=== PATIENT | male | born 1990 | race Caucasian/White ===

== ENCOUNTER 2016-11-25 17:05 | Emergency (ER) | payer SELFPAY ==
[~2016-11-25] VITALS: Ht 185.4 cm; Wt 122.7 kg
[2016-11-25 17:15] VITALS: TEMP 36.6; O2SAT 92; Ht 185.4 cm; Wt 122.7 kg
--- NOTE | 2016-11-25 17:50 | EMERGENCY ROOM VISIT NOTE ---
History Report prepared by Ranjith: Nelida Bartholomew Under the Supervision of: Dr. Titi Joshi M.D. First contact with patient: 17:08 Stated Complaint: ALCOHOL OVERDOSE History of Present Illness The patient is a 26 year old male who presents to the Emergency Room with complaints of an episode of alcohol intoxication occurring prior to arrival. Per EMS, the patient was at the medic station and was vomiting. They report that they gave 8 mg of Zofran. They state they called the ambulance because they thought he was too drunk. The patient denies being diabetic, having a cardiac history, and any falls. History limited secondary to alcohol intoxication. Source of History: patient, EMS History Limited By: intoxication Onset: prior to arrival Position: other (global) Quality: other (global) Timing: other (episode) Associated Symptoms: + vomiting Note: The patient denies falling. Review of Systems ROS unattainable secondary to alcohol intoxication. Past Medical & Surgical Medical Problems: (1) No Known Active Medical Problems Family History No pertinent family history Social History Alcohol Use: occasionally Marital Status: single Current/Historical Medications Unable to Obtain Active Prescriptions or Reported Meds Physical Exam Vital Signs Date Time Temp Pulse Resp B/P (MAP) Pulse Ox O2 Delivery O2 Flow Rate FiO2 11/25/16 22:49 125/59 11/25/16 22:35 84 93 11/25/16 22:14 112/60 11/25/16 22:09 112/60 11/25/16 22:05 89 95 11/25/16 21:35 90 100 11/25/16 21:05 90 96 11/25/16 20:35 83 2 100 11/25/16 20:30 115/76 11/25/16 20:05 89 14 96 11/25/16 20:00 116/47 11/25/16 19:35 75 15 97 11/25/16 19:31 115/67 11/25/16 19:19 73 14 114/70 97 Room Air 11/25/16 19:05 76 9 96 11/25/16 19:00 114/70 11/25/16 18:35 82 16 95 11/25/16 18:30 122/63 11/25/16 18:05 85 17 94 11/25/16 18:02 84 18 116/69 94 Nasal Cannula 2.0 11/25/16 18:00 116/69 11/25/16 17:35 80 16 93 11/25/16 17:30 112/56 11/25/16 17:27 74 11/25/16 17:16 134/65 11/25/16 17:15 92 Room Air 11/25/16 17:15 36.6 78 18 134/65 92 Room Air Physical Exam GENERAL: Patient is in no acute distress. Smells of alcohol. HEENT: No acute trauma, normocephalic atraumatic, mucous membranes moist, no nasal congestion, no scleral icterus. Pupils equal and reactive to light. No obvious head trauma. NECK: No stridor, no adenopathy, no meningismus, trachea is midline. LUNGS: Clear to auscultation bilaterally, no wheeze, no rhonchi, breath sounds equal. HEART: Without murmurs gallops or rubs, regular rate and rhythm. ABDOMEN: Soft, nontender, bowel sounds positive, no hernias, no peritonitis. EXTREMITIES: No cyanosis or edema, full range of motion of all the joints without pain or difficulty, no signs for acute trauma. NEUROLOGIC: Moderately intoxicated with alcohol, no acute motor or sensory deficits, no focal weakness. SKIN: No rash, no jaundice, no diaphoresis. Medical Decision & Procedures Laboratory Results 11/25/16 17:37 Test 11/25/16 17:37 Anion Gap 9.0 mmol/L (3-11) Est Creatinine Clear Calc Drug Dose 164.0 ml/min Estimated GFR () 130.7 Estimated GFR (Non- 112.8 BUN/Creatinine Ratio 15.1 (10-20) Calcium Level 8.2 mg/dl (8.5-10.1) Ethyl Alcohol mg/dL 233.0 mg/dl (0-3) Laboratory results reviewed by me. ED Course 1709: The patient was evaluated in room B3. A complete history and physical exam was performed. 2304: Reevaluated the patient. Discussed results and discharge instructions: he verbalized understanding and agreement. The patient is ready for discharge. Medical Decision Differential diagnoses include head trauma, alcohol or drug abuse, dehydration, vomiting, alcohol overdose, aspiration. The patient presents with an alcohol overdose. No trauma reported. No vomiting. Alcohol level is around 230, consistent with his history. No significant electrolyte abnormality or kidney failure. The patient was watched in the emergency room on the cardiac and pulse ox monitor. His alcohol was allowed to clear with time. Now that he is more awake and alert, he can be discharged. His history is consistent with an alcohol overdose. Impression Primary Impression: Alcohol overdose Additional Impression: Vomiting Scribe Attestation The scribe's documentation has been prepared under my direction and personally reviewed by me in its entirety. I confirm that the note above accurately reflects all work, treatment, procedures, and medical decision making performed by me. Departure Information Dispostion Home / Self-Care Prescriptions Unable to Obtain Active Prescriptions or Reported Meds Forms HOME CARE DOCUMENTATION FORM, IMPORTANT VISIT INFORMATION Additional Instructions fluids rest tylenol for pain do not use alcohol in excess Problem Qualifiers
[2016-11-25 18:19] LABS: BUN/CREATININE RATIO 15.1 (10-20); CALCIUM 8.2 mg/dl (8.5-10.1); CREATININE 0.92 mg/dl (0.60-1.40); POTASSIUM 3.7 mmol/L (3.5-5.1)
[2016-11-25 22:35] VITALS: PULSE 84; O2SAT 93
[2016-11-25 22:49] VITALS: BP 125/59
== END 2016-11-25 23:17 | disposition home or self-care (01) ==
LOC: EDBD 17:05 → C.EDB 17:07
DX: F10.129 Alcohol abuse with intoxication, unspecified (principal); R11.10 Vomiting, unspecified